=== PATIENT | female | born 1955 | race Two or more races ===

== ENCOUNTER 2020-04-22 12:01 | Day surgery (SDC) | payer OTHER | END 2020-04-22 16:03 | disposition home or self-care (01) | LOC: AMB-ENDOS 12:01 | PROVIDERS: ATTEND Surgery | DX: K62.82 Dysplasia of anus (principal); D12.5 Benign neoplasm of sigmoid colon; Z20.828 Contact with and (suspected) exposure to other viral communicable diseases ==

== ENCOUNTER 2020-08-30 05:35 | Day surgery (SDC) | payer OTHER ==
[~2020-08-30 05:35] MED LIST: ENALAPRIL MALEA10 MG PO; SINEMET 25-1001 EACH PO; TOPROL XL25 M1 PO
[2020-08-30] MEDS ORDERED: COLACE100 MG PO (08:48)
[2020-08-30] MEDS ORDERED: PERCOCET 5-3251 EACH PO (08:48)
== END 2020-08-30 13:35 | disposition home or self-care (01) ==
LOC: CIR.AMB 05:35
PROVIDERS: ATTEND Surgery
DX: K60.3 Anal fistula (principal); Z20.822 Contact with and (suspected) exposure to COVID-19